=== PATIENT | female | born 1985 | race African-American/Black ===

== ENCOUNTER → 2020-11-07 13:19 | Outpatient (CLI) | payer OTHER, SELFPAY ==
--- NOTE | ~2020-11-07 | US_ITS ---
EXAMINATION: US thyroid DATE: 11/07/2020 13:49 INDICATION: Thyroid nodule. TECHNIQUE: Multiple ultrasound images of the thyroid were obtained. COMPARISON: Ultrasound 06/03/2018 FINDINGS: The right thyroid lobe measures 5.3 x 1.2 x 1.2 cm. The left thyroid lobe measures 4.4 x 0.9 x 1.9 c m. There is a 3 mm nodule in right thyroid lobe. IMPRESSION: 1. Small thyroid nodule, likely not clinically significant. No follow-up is needed. Reviewed, dictated and finalized at location A. IMPRESSION: 1. Small thyroid nodule, likely not clinically significant. No follow-up is nee ded.
== END ==
PROVIDERS: PCP Internal Medicine; Visit Provider Internal Medicine
DX: E04.1 Nontoxic single thyroid nodule (principal)
CPT/HCPCS: 76536

== ENCOUNTER 2023-03-02 14:14 | Emergency (ER) | payer OTHER, SELFPAY ==
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
[2023-03-02 14:18] VITALS: BP 146/76; PULSE 83; RESP 20; TEMP 36.3; O2SAT 99
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
[2023-03-02] MEDS: ONDANSETRON HCL ODT 4 MG TABLET PO (15:20)
[2023-03-02] MEDS: KETOROLAC 30 MG/ML VIAL (*BKC) IM (15:20)
[2023-03-02 16:32] VITALS: BP 136/76; PULSE 86; RESP 20; O2SAT 100
== END 2023-03-02 16:33 | disposition home or self-care (01) ==
PROVIDERS: Emergency Provider Physician Assistant; PCP Internal Medicine
DX: S06.0X0A Concussion without loss of consciousness, initial encounter (principal); S16.1XXA Strain of muscle, fascia and tendon at neck level, initial encounter; S69.92XA Unspecified injury of left wrist, hand and finger(s), initial encounter; S89.92XA Unspecified injury of left lower leg, initial encounter; K21.9 Gastro-esophageal reflux disease without esophagitis; V43.52XA Car driver injured in collision with other type car in traffic accident, initial encounter
CPT/HCPCS: 72125; 72131; 73110; 73562; 81025; 96372; 99284; A9270; J1885

== ENCOUNTER 2023-03-27 08:15 | Outpatient (CLI) | payer OTHER, SELFPAY ==
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
== END 2023-03-27 08:16 | disposition home or self-care (01) ==
PROVIDERS: PCP Internal Medicine; Visit Provider Internal Medicine
DX: R51.9 Headache, unspecified (principal)
CPT/HCPCS: 70450

== ENCOUNTER 2024-01-03 14:49 | Outpatient (CLI) | payer OTHER, SELFPAY ==
--- NOTE | ~2024-01-03 | US_ITS ---
US thyroid INDICATION: Thyroid nodule TECHNIQUE: Real-time sonographic images of the thyroid gland were obtained. COMPARISON: 11/07/2020 FINDINGS: The right thyroid lobe measures 5.5 x 1.3 x 1.5 cm. The left thyroid lobe measures 4.5 x 0 .9 x 1.8 cm. There is normal echotexture and echogenicity throughout the thyroid gland. In the right lobe there is a small oval solid hypoechoic wider than tall, smoothly marginated mass without echogen ic foci, TR 4, likely benign. Normal vascular flow is present. IMPRESSION: 1. Probable benign 5 mm right thyroid nodule, TR 4. Reviewed, dictated and finalized at location B.
--- NOTE | ~2024-01-03 | MR_ITS ---
MRI of the pelvis Clinical history left inguinal pain TECHNIQUE: Axial T1-weighted, T2 fat-sat, and T1 fat-sat images, coronal T1-weighted and T2 fat-sat i mages, and sagittal T1-weighted and T2 fat-sat images were performed. Following intravenous administr ation of 20 cc MultiHance gadolinium, T1-weighted fat-sat imaging was performed in the axial, coronal , and sagittal planes. FINDINGS: Visualized bowel loops are unremarkable. No pelvic/adnexal mass seen. Urinary bladder unrem arkable. No ascites. No pelvic lymphadenopathy seen. No inguinal lymphadenopathy is seen. No hernia evident. No abnormalit y of the left inguinal region identified. No abnormal postcontrast enhancement identified. IMPRESSION: No significant abnormality seen. Reviewed, dictated and finalized at [facility].
== END 2024-01-03 14:50 | disposition home or self-care (01) ==
PROVIDERS: PCP Internal Medicine; Visit Provider Internal Medicine
DX: E04.1 Nontoxic single thyroid nodule (principal)
CPT/HCPCS: 72197; 76536; A9577